=== PATIENT | female | born 1960 | race Caucasian/White ===

== ENCOUNTER 2023-09-06 15:39 | Inpatient (IN) | payer MEDICARE, MEDICAID ==
[~2023-09-06] VITALS: Ht 167.6 cm; Wt 101.5 kg
[2023-09-06] VITALS (21 sets, daily range): BP systolic 125–185; BP diastolic 73–107; PULSE 58–69; RESP 12–22; TEMP 98.4; O2SAT 96–100
[~2023-09-06 15:39] MED LIST: tenecteplase 50mg kit IV ONE
[2023-09-06] MEDS ORDERED: aspirin 81mg tab.chew PO ONE (15:50)
[2023-09-06] MEDS ORDERED: normal saline 1000ml 1,000 ML IV ONE (15:50)
[2023-09-06] MEDS ORDERED: iohexol 350MG/ML 100ml bottle IV ONE (15:59)
[2023-09-06 16:50] LABS: BASOPHILS % (AUTO) 0.6 % (0-1); EOSINOPHILS # (AUTO) 0.2 X10'3 (0-0.9); EOSINOPHILS % (AUTO) 3.5 % (0-6); HEMOGLOBIN 11.7 g/dl (12.0-16.0); LYMPHOCYTES # (AUTO) 1.5 X10'3 (1.1-4.8); LYMPHOCYTES % (AUTO) 28.8 % (21-51); MEAN CORPUSCULAR HEMOGLOBIN 33.4 PG (27.0-31.0); MEAN CORPUSCULAR HGB CONC 33.3 g/dL (33.0-36.5); MEAN CORPUSCULAR VOLUME 100.2 FL (78-98); MEAN PLATELET VOLUME 8.1 FL (7.4-10.4); MONOCYTES # (AUTO) 0.5 X10'3 (0-0.9); MONOCYTES % (AUTO) 10.2 % (2-12); NEUTROPHILS # (AUTO) 2.9 X10'3 (1.8-7.7); NEUTROPHILS % (AUTO) 56.9 % (42-75); PLATELET COUNT 237 X10'3 (140-440); RED BLOOD COUNT 3.49 X10'6 (4.20-5.60); RED CELL DISTRIBUTION WIDTH 13.3 % (11.5-14.5); WHITE BLOOD COUNT 5.2 X10'3 (4.5-11.0)
[2023-09-06 17:01] LABS: C-REACTIVE PROTEIN 0.18 MG/DL (0.0-0.5); MAGNESIUM 1.9 MG/DL (1.5-2.4)
[2023-09-06 17:06] LABS: ALANINE AMINOTRANSFERASE 17 U/L (12-78); ALBUMIN 3.4 G/DL (3.4-5.0); ALBUMIN/GLOBULIN RATIO 0.8 (1.1-1.5); ALKALINE PHOSPHATASE 105 IU/L (46-116); ANION GAP 9 (8-16); ASPARTATE AMINO TRANSFERASE 25 U/L (10-37); BILIRUBIN,TOTAL 0.8 MG/DL (0.1-1.0); BLOOD UREA NITROGEN 18 MG/DL (7-18); CALCIUM 9.5 MG/DL (8.5-10.1); CHLORIDE 105 MMOL/L (99-107); GLUCOSE 97 MG/DL (70-104); POTASSIUM 3.9 MMOL/L (3.5-5.1); SODIUM 139 MMOL/L (135-145); TOTAL PROTEIN 7.7 G/DL (6.4-8.2); eCRCL 44 ML/MIN; eGFR 45 ML/MIN
[2023-09-06 17:13] LABS: PRO BRAIN NATRIURETIC PEPTIDE 86 PG/ML (0-125)
[2023-09-06 17:38] LABS: APTT 29 SECONDS (22-32); PROTHROMBIN TIME 10.7 SECONDS (9.0-12.0)
[2023-09-06] MEDS ORDERED: tenecteplase-TNKase inj 10 ML IV ONE (17:45)
[2023-09-06] MEDS ORDERED: tenecteplase 50mg kit IV ONE ×2 (18:00→18:05)
[2023-09-06] MEDS ORDERED: morphine 4 MG/ML inj SYRINge IV PRN (18:05)
[2023-09-06] MEDS ORDERED: ondansetron/PF 4mg/2ml inj IV PRN (18:05)
[2023-09-06] MEDS ORDERED: acetaminophen 325mg tablet PO PRN ×2 (18:05)
[2023-09-06] MEDS ORDERED: morphine 2 MG/ML inj. syringe IV PRN (18:05)
[2023-09-06] MEDS ORDERED: magnesium hydroxide 30ml (MOM) UD suspension PO PRN (18:05)
[2023-09-06 18:48] LABS: BILIRUBIN,URINE NEGATIVE (Neg); CLARITY,URINE SLIGHTLY CLOUDY (Clear); COLOR,URINE YELLOW (Yellow); GLUCOSE, URINE NEGATIVE (Neg); KETONES,URINE NEGATIVE (Neg); LEUKOCYTE ESTERASE ,URINE NEGATIVE (Neg); NITRITES, URINE NEGATIVE (Neg); OCCULT BLOOD,URINE NEGATIVE (Neg); PROTEIN,URINE NEGATIVE (Neg); UROBILINOGEN,URINE 0.2 E.U/dL (0.2-1.0)
[2023-09-06 19:03] LABS: RBC,URINE 0-2 /HPF (0-2); UA COLLECTION TYPE VOIDED; WBC,URINE 0-4 /HPF (0-4)
[2023-09-06 19:04] LABS: BACTERIA,URINE FEW /HPF (Neg); MUCUS STRANDS FEW /LPF (Neg); SQUAMOUS EPITHELIAL CELL,UR MODERATE /LPF (FEW)
[2023-09-06 19:37] LABS: THYROID STIMULATING HORMONE 1.24 ulU/ml (0.34-4.50)
[2023-09-06 20:02] LABS: HEMOGLOBIN A1C 5.5 % (4.5-6.2)
[2023-09-06 20:49] LABS: URINE AMPHETAMINE SCREEN POSITIVE (Neg); URINE BARBITUATE SCREEN NEGATIVE (Neg); URINE BENZODIAZEPINES SCREEN NEGATIVE (Neg); URINE CANNABINOID SCREEN NEGATIVE (Neg); URINE COCAINE SCREEN NEGATIVE (Neg); URINE METHADONE SCREEN NEGATIVE (Neg); URINE OPIATE SCREEN NEGATIVE (Neg); URINE PHENCYCLIDINE SCREEN NEGATIVE (Neg)
[2023-09-06] MEDS ORDERED: methylPREDNISolone sod succ 125mg/2ml vial IV ONE (21:30)
[2023-09-07] VITALS (44 sets, daily range): BP systolic 126–171; BP diastolic 61–124; PULSE 54–80; RESP 11–24; O2SAT 90–100
[2023-09-07 08:21] LABS: BASOPHILS % (AUTO) 0.7 % (0-1); EOSINOPHILS # (AUTO) 0.2 X10'3 (0-0.9); EOSINOPHILS % (AUTO) 4.7 % (0-6); HEMATOCRIT 34.2 % (35.0-45.0); HEMOGLOBIN 11.3 g/dl (12.0-16.0); LYMPHOCYTES # (AUTO) 1.8 X10'3 (1.1-4.8); LYMPHOCYTES % (AUTO) 33.7 % (21-51); MEAN CORPUSCULAR VOLUME 103.2 FL (78-98); MEAN PLATELET VOLUME 7.7 FL (7.4-10.4); MONOCYTES # (AUTO) 0.6 X10'3 (0-0.9); MONOCYTES % (AUTO) 11.6 % (2-12); NEUTROPHILS # (AUTO) 2.6 X10'3 (1.8-7.7); NEUTROPHILS % (AUTO) 49.3 % (42-75); PLATELET COUNT 193 X10'3 (140-440); RED BLOOD COUNT 3.32 X10'6 (4.20-5.60); WHITE BLOOD COUNT 5.2 X10'3 (4.5-11.0)
[2023-09-07 09:04] LABS: ALBUMIN 2.6 G/DL (3.4-5.0); ANION GAP 7 (8-16); BLOOD UREA NITROGEN 12 MG/DL (7-18); BUN/CREATININE RATIO 12.6 (10.0-20.0); CHLORIDE 107 MMOL/L (99-107); CREATININE 0.95 MG/DL (0.40-0.90); GLUCOSE 87 MG/DL (70-104); POTASSIUM 4.6 MMOL/L (3.5-5.1); SODIUM 137 MMOL/L (135-145); TOTAL CARBON DIOXIDE 22.6 MMOL/L (24-32); eCRCL 56 ML/MIN; eGFR 59 ML/MIN
[2023-09-07] MEDS ORDERED: CEPH-585 PO (10:49)
[2023-09-07] MEDS ORDERED: LORA10TA7 PO (10:49)
[2023-09-07] MEDS ORDERED: CITA40TA17 PO (10:49)
[2023-09-07] MEDS ORDERED: OMEP20CA16 PO (10:49)
[2023-09-07] MEDS ORDERED: ALBU6.7H14 INH (10:49)
[2023-09-07] MEDS ORDERED: HYDR-3972 PO (10:49)
[2023-09-07] MEDS ORDERED: FLO110IN PO (10:49)
[2023-09-07] MEDS ORDERED: CLON0.1T2 PO (10:49)
[2023-09-07] MEDS ORDERED: FOLI1TAB27 PO (10:49)
[2023-09-07] MEDS ORDERED: FLUT16SP26 (10:49)
[2023-09-07] MEDS ORDERED: SIMV10TA98 PO (10:49)
[2023-09-07] MEDS ORDERED: CELE-127 PO (10:49)
[2023-09-07] MEDS ORDERED: CALC600T35 PO (10:49)
[2023-09-07] MEDS ORDERED: GABA600T13 PO (10:49)
[2023-09-07] MEDS: pantoprazole 40mg Tablet.DR PO SCH (12:04)
[2023-09-07 12:42] LABS: CHOL/HDL RATIO 2.6 (0.00-4.99); CHOLESTEROL 185 MG/DL (0-200); HDL CHOLESTEROL 72 MG/DL (35-60); LDL CHOLESTEROL 94 MG/DL (50-100); TRIGLYCERIDES 55 MG/DL (20-135)
[2023-09-07] MEDS: aspirin 81mg, enteric-coated 1 TAB TABLET.DR PO SCH (20:13)
[2023-09-08] VITALS (12 sets, daily range): BP systolic 112–156; BP diastolic 58–77; PULSE 60–93; RESP 13–19; O2SAT 93–97
[2023-09-08 06:44] LABS: ALBUMIN 3.1 G/DL (3.4-5.0); ANION GAP 8 (8-16); BLOOD UREA NITROGEN 17 MG/DL (7-18); BUN/CREATININE RATIO 17.9 (10.0-20.0); CALCIUM 9.4 MG/DL (8.5-10.1); CHLORIDE 105 MMOL/L (99-107); CREATININE 0.95 MG/DL (0.40-0.90); GLUCOSE 90 MG/DL (70-104); SODIUM 137 MMOL/L (135-145); TOTAL CARBON DIOXIDE 23.6 MMOL/L (24-32); eCRCL 56 ML/MIN; eGFR 59 ML/MIN
[2023-09-08 06:46] LABS: POTASSIUM 4.4 MMOL/L (3.5-5.1)
[2023-09-08 06:48] LABS: EOSINOPHILS # (AUTO) 0.2 X10'3 (0-0.9); EOSINOPHILS % (AUTO) 4.1 % (0-6); HEMATOCRIT 36.5 % (35.0-45.0); LYMPHOCYTES # (AUTO) 1.6 X10'3 (1.1-4.8); MEAN CORPUSCULAR HEMOGLOBIN 34.6 PG (27.0-31.0); MEAN CORPUSCULAR HGB CONC 32.7 g/dL (33.0-36.5); MEAN CORPUSCULAR VOLUME 105.7 FL (78-98); MEAN PLATELET VOLUME 8.6 FL (7.4-10.4); MONOCYTES # (AUTO) 0.5 X10'3 (0-0.9); MONOCYTES % (AUTO) 9.6 % (2-12); NEUTROPHILS # (AUTO) 2.4 X10'3 (1.8-7.7); NEUTROPHILS % (AUTO) 50.3 % (42-75); PLATELET COUNT 165 X10'3 (140-440); RED BLOOD COUNT 3.46 X10'6 (4.20-5.60); RED CELL DISTRIBUTION WIDTH 14.2 % (11.5-14.5); WHITE BLOOD COUNT 4.7 X10'3 (4.5-11.0)
[2023-09-08] MEDS ORDERED: ASPI-1071 PO (08:22)
[2023-09-08] MEDS: pantoprazole 40mg Tablet.DR PO SCH (08:46)
[2023-09-08] MEDS: aspirin 81mg, enteric-coated 1 TAB TABLET.DR PO SCH (08:46)
== END 2023-09-08 18:30 | disposition home health service (06) | DRG 63 ==
LOC: ER 15:39 → ICU 2S 19:11
PROVIDERS: ADMIT Internal Medicine Critical Care Medicine; ATTEND Internal Medicine Critical Care Medicine
PROC: 3E03317 Introduction of Other Thrombolytic into Peripheral Vein, Percutaneous Approach (ICD-10-PCS; principal; 2023-09-06)
PROC: B3251ZZ Computerized Tomography (CT Scan) of Bilateral Common Carotid Arteries using Low Osmolar Contrast (ICD-10-PCS; 2023-09-06)
PROC: B32G1ZZ Computerized Tomography (CT Scan) of Bilateral Vertebral Arteries using Low Osmolar Contrast (ICD-10-PCS; 2023-09-06)
PROC: B32R1ZZ Computerized Tomography (CT Scan) of Intracranial Arteries using Low Osmolar Contrast (ICD-10-PCS; 2023-09-06)
PROC: B3281ZZ Computerized Tomography (CT Scan) of Bilateral Internal Carotid Arteries using Low Osmolar Contrast (ICD-10-PCS; 2023-09-06)
PROC: 5A09357 Assistance with Respiratory Ventilation, Less than 24 Consecutive Hours, Continuous Positive Airway Pressure (ICD-10-PCS; 2023-09-06)
PROC: 5A09357 Assistance with Respiratory Ventilation, Less than 24 Consecutive Hours, Continuous Positive Airway Pressure (ICD-10-PCS; 2023-09-07)
DX: I63.9 Cerebral infarction, unspecified (principal); Z86.73 Personal history of transient ischemic attack (TIA), and cerebral infarction without residual deficits; E66.01 Morbid (severe) obesity due to excess calories; F41.9 Anxiety disorder, unspecified; G47.30 Sleep apnea, unspecified; G89.29 Other chronic pain; F32.A Depression, unspecified; D64.9 Anemia, unspecified; G83.24 Monoplegia of upper limb affecting left nondominant side; R29.706 NIHSS score 6; I10 Essential (primary) hypertension; Z87.891 Personal history of nicotine dependence; I65.23 Occlusion and stenosis of bilateral carotid arteries; Z90.710 Acquired absence of both cervix and uterus; Z68.36 Body mass index [BMI] 36.0-36.9, adult; Z90.49 Acquired absence of other specified parts of digestive tract; Z56.0 Unemployment, unspecified
CPT/HCPCS: 36415; 70450; 70496; 70498; 70551; 71045; 80048; 80053; 80061; 80305; 81001; 82948; 83036; 83735; 83880; 84145; 84443; 84484; 85025; 85610; 85651; 85730; 86140; 86592; 87081; 92508; 92616; 93005; 93306; 93880; 94760; 97161; 97530; 99285; G0378; J3101; J3490; J7030; Q9967